=== PATIENT | male | born 1980 | race Caucasian/White ===

== ENCOUNTER 2022-09-08 12:33 | Emergency (ER) | payer OTHER, SELFPAY ==
[2022-09-08 13:17] VITALS: BP 120/79; PULSE 93; RESP 19; TEMP 36.6; O2SAT 98; BMI 27.8
[2022-09-08 13:32] VITALS: PULSE 84; O2SAT 97
--- NOTE | 2022-09-08 13:34 | DI.CT.S_ITS ---
PROCEDURE: CT ABDOMEN PELVIS W CON INDICATIONS: IV contrast only/left lower quadrant pain TECHNIQUE: After the administration of intravenous contrast, axial sections acquired from the lung bases to the pubic symphysis. Coronal and sagittal reformats were performed. For radiation dose reduction, the following was used: automated exposure control, adjustment of mA and/or kV according to patient size. COMPARISON: None. FINDINGS: Image quality: Excellent. Lung bases: Unremarkable. Heart: No significant findings. ABDOMEN: Liver: Unremarkable. Gallbladder: Unremarkable. Biliary ducts: Unremarkable. Pancreas: Unremarkable. Spleen: Unremarkable. Adrenal Glands: Unremarkable. Kidneys and Ureters: Unremarkable. Stomach and Bowel: Stomach, and small bowel loops are unremarkable. Scant colonic diverticulosis involving the descending colon with associated acute inflammatory changes of the distal descending colon and proximal sigmoid colon. No evidence for perforation or abscess formation. Normal appendix. Peritoneum: No abnormal intraperitoneal fluid. No free air. Ventral Wall: No hernias. Abdominal Nodes: No retroperitoneal or mesenteric adenopathy by size criteria. Vessels: Aorta and inferior vena cava are normal in size. PELVIS: Pelvic Organs: Unremarkable. Bladder: Unremarkable. Pelvic Nodes: No enlarged lymph nodes. Miscellaneous: No hernias are seen. Bones: Visualized osseous structures appear intact without acute fracture or focal destructive lesion. No acute compression fractures of the imaged spine. IMPRESSION: Acute diverticulitis involving the distal descending colon and proximal sigmoid colon. No evidence for perforation or abscess formation. Dictated by: Bertin Stacy M.D. on 09/08/2022 at 14:42 Approved by: Bertin Stacy M.D. on 09/08/2022 at 14:45
--- NOTE | 2022-09-08 13:35 | ED.ABDPAIN ---
HPI - Abdominal Pain General Chief Complaint: Abdominal Pain Stated Complaint: abd pain on left side Time Seen by Provider: 09/08/22 13:23 Source: patient Mode of arrival: Family Vehicle History of Present Illness HPI narrative: Patient awoke 3:00 a.m. this morning with left lower quadrant pain. Has been persistent. Never had this pain before. No nausea or vomiting no urinary complaints no hematuria. Pain is worse with movement and on palpation. No prior abdominal surgical history. Patient in no distress at this time. No history hernia. No known injury. Related Data Previous Rx's Medication Instructions Recorded ciprofloxacin HCl 500 mg tablet 500 mg PO BID #14 tabs 09/08/22 (Cipro) ibuprofen 800 mg tablet 800 mg PO Q8H PRN pain #20 tabs 09/08/22 metronidazole 500 mg tablet 500 mg PO TID #21 tabs 09/08/22 Allergies Allergy/AdvReac Type Severity Reaction Status Date / Time No Known Drug Allergies Allergy Verified 09/08/22 13:20 Review of Systems Review of Systems Narrative: GENERAL: negative chills, fatigue, malaise, fever, sweats. HEENT: negative sinus pain, ear pain, sore throat RESPIRATORY: negative dyspnea, cough CARDIOVASCULAR: negative chest pain, palpitations GASTROINTESTINAL: negative nausea, vomiting, positive abdominal pain : negative dysuria, frequency, hematuria MUSCULOSKELETAL: negative muscle or bony pain SKIN: negative rash, skin lesions NEUROLOGIC: negative weakness, numbness ROS Unobtainable: All systems reviewed & are unremarkable except as noted in HPI and below Patient History Social History Smoking Status: Current every day smoker Smoking Status: Current every day smoker tobacco type: cigarettes alcohol intake frequency: 0-2 drinks per day Substance Use Type: marijuana Exam Narrative Exam Narrative: GENERAL: in no distress, not toxic not dyspneic HEAD: Normocephalic. EYES: Pupils equal round ENT: Mucous membranes moist. NECK: Trachea midline. CARDIOVASCULAR: Regular rate and rhythm RESPIRATORY: Clear to auscultation. Breath sounds equal bilaterally. No wheezes, rales, or rhonchi. GASTROINTESTINAL: Abdomen soft, there is reproducible left lower quadrant tenderness no peritoneal signs bowel sounds are present. No pain out of portion to exam. No CVA tenderness EXTREMITIES: No gross deformities. BACK: No flank tenderness. NEURO: AOx4. SKIN: Warm and dry PSYCH: Not anxious, is cooperative Initial Vital Signs Initial Vital Signs: Vital Signs Temperature 98 F 09/08/22 13:17 Pulse Rate 93 H 09/08/22 13:17 Respiratory Rate 19 09/08/22 13:17 Blood Pressure 120/79 09/08/22 13:17 Pulse Oximetry 98 09/08/22 13:17 Oxygen Delivery Method Room Air 09/08/22 13:17 Course Orders Ordered: Discontinued Medications Ciprofloxacin (Ciprofloxacin 250 Mg Tablet) 500 mg PO NOW ONE Stop: 09/08/22 15:41 Last Admin: 09/08/22 15:45 Dose: 500 mg Documented By: CURRY Sodium Chloride (Normal Saline 0.9%) 500 mls @ 1,000 mls/hr IV BOLUS ONE Stop: 09/08/22 14:03 Last Infusion: 09/08/22 14:50 Dose: 0 mls/hr Documented By: Admin: 09/08/22 13:57 Dose: 1,000 mls/hr Documented By: CURRY Ketorolac Tromethamine (Ketorolac 30 Mg/Ml Vial) 15 mg IV NOW ONE Stop: 09/08/22 13:35 Last Admin: 09/08/22 13:56 Dose: 15 mg Documented By: CURRY Metronidazole (Metronidazole 500 Mg Tablet) 500 mg PO NOW ONE Stop: 09/08/22 15:41 Last Admin: 09/08/22 15:45 Dose: 500 mg Documented By: CURRY Ondansetron HCl (Ondansetron 4 Mg Odt) 4 mg PO NOW PRN PRN Reason: Nausea And Vomiting Ondansetron HCl (Ondansetron 4 Mg/2 Ml Inj) 4 mg IV NOW PRN PRN Reason: Nausea And Vomiting Vital Signs Vital signs: Vital Signs - 8 hr 09/08/22 13:17 09/08/22 13:32 09/08/22 14:00 Temperature 98 F Pulse Rate 93 H 84 Respiratory Rate 19 Blood Pressure 120/79 138/83 Pulse Oximetry 98 97 Oxygen Delivery Method Room Air 09/08/22 14:00 Temperature Pulse Rate 78 Respiratory Rate Blood Pressure Pulse Oximetry 98 Oxygen Delivery Method Room Air MDM - Abdominal Pain Lab Data 09/08/22 13:30 09/08/22 13:30 Labs: Lab Results 09/08/22 09/08/22 Range/Units 13:30 13:30 WBC 14.4 H (4.5-11.0) X10^3/uL RBC 4.99 (4.5-5.9) X10^6/uL Hgb 16.0 (13.5-17.5) g/dL Hct 45.2 (41-53) % MCV 90.6 (80-100) fL MCH 32.1 (26-34) PG MCHC 35.4 (30-36) % RDW 13.0 (11.6-14.8) % Plt Count 227 (150-400) X10^3/uL Neut % (Auto) 74.6 (50-75) % Lymph % (Auto) 13.9 L (25-40) % [place] % (Auto) 8.8 (3-14) % Eos % (Auto) 2.0 (2-4) % Baso % (Auto) 0.7 (0-2) % Neut # (Auto) 92266 H (4026-9628) /uL Lymph # (Auto) 2000 (9059-3132) /uL [place] # (Auto) 1300 H (0-900) /uL Eos # (Auto) 300 (0-450) /uL Baso # (Auto) 100 (0-100) /uL Sodium 135 L (137-145) mmol/L Potassium 4.0 (3.4-5.1) mmol/L Chloride 99 (98-107) mmol/L Carbon Dioxide 28 (22-32) mmol/L BUN 11 (9-20) mg/dL Creatinine 0.86 (0.66-1.25) mg/dL Estimated GFR > 60 (>60) mL/min BUN/Creatinine Ratio 12.8 (6-22) Glucose 99 (70-100) mg/dL Calcium 9.3 (8.4-10.2) mg/dL Total Bilirubin 0.4 (0.2-1.3) mg/dL AST 28 (17-59) IU/L ALT 26 (<50) IU/L Alkaline Phosphatase 106 (38-126) U/L Total Protein 7.9 (6.3-8.2) g/dL Albumin 4.5 (3.5-5.0) g/dL Globulin 3.4 (1.7-4.1) g/dL Albumin/Globulin Ratio 1.3 (1.0-2.8) Lipase 41 (23-300) U/L Point of care testing: Urine Dip Bedside Urine Glucose Negative Bedside Urine Bilirubin - Negative Bedside Urine Ketone - Negative Urine Specific [place] 1.010 Bedside Urine Occult Blood - Negative Bedside Urine pH 6.0 Bedside Urine Protein - Negative Bedside Urine Urobilinogen - Negative Bedside Urine Nitrite - Negative Bedside Urine Leukocytes - Negative Esterase Imaging Data CT scan - abdomen/pelvis: Radiologist's Impression: [address] [address] [address] Scan Report Signed Patient: Gold Jorge MR#: [id number] : 1980 Acct:[id number] Age/Sex: 42 / M Date of Service: 09/08/22 Loc: ED Accession Number: [id number] ?? Procedure: CT abdomen pelvis w con Ordering Provider: Nicko Mcdonough MD PROCEDURE:? CT ABDOMEN PELVIS W CON ? INDICATIONS:? IV contrast only/left lower quadrant pain ? TECHNIQUE:? After the administration of intravenous contrast, axial sections acquired from the lung bases to the pubic symphysis.? Coronal and sagittal reformats were performed.? For radiation dose reduction, the following was used:? automated exposure control, adjustment of mA and/or kV according to patient size.? ? COMPARISON:? None. ? FINDINGS:? Image quality:? Excellent.? ? Lung bases:? Unremarkable. Heart:? No significant findings. ? ABDOMEN: Liver:? Unremarkable.? ? Gallbladder:? Unremarkable.? ? Biliary ducts:? Unremarkable.? ? Pancreas:? Unremarkable.? ? Spleen:? Unremarkable.? ? Adrenal Glands:? Unremarkable.? ? Kidneys and Ureters:? Unremarkable.? ? ? Stomach and Bowel:? Stomach, and small bowel loops are unremarkable.? Scant colonic diverticulosis involving the descending colon with associated acute inflammatory changes of the distal descending colon and proximal sigmoid colon.? No evidence for perforation or abscess formation.? Normal appendix. Peritoneum:? No abnormal intraperitoneal fluid.? No free air.? ? Ventral Wall: ? No hernias.? Abdominal Nodes:? No retroperitoneal or mesenteric adenopathy by size criteria.? Vessels:? Aorta and inferior vena cava are normal in size.? ? PELVIS: Pelvic Organs:? Unremarkable.? ? Bladder:? Unremarkable.? ? Pelvic Nodes: No enlarged lymph nodes.? Miscellaneous: No hernias are seen. ? ? ? Bones: Visualized osseous structures appear intact without acute fracture or focal destructive lesion. No acute compression fractures of the imaged spine. ? ? IMPRESSION:? Acute diverticulitis involving the distal descending colon and proximal sigmoid colon.? No evidence for perforation or abscess formation. ? ? Dictated by: Bertin Stacy M.D. on 09/08/2022 at 14:42 ? ? Approved by: Bertin Stacy M.D. on 09/08/2022 at 14:45 ? [facility] Narrative Medical decision making narrative: Patient awoke 3:00 a.m. this morning with left lower quadrant pain. Has been persistent. Never had this pain before. No nausea or vomiting no urinary complaints no hematuria. Pain is worse with movement and on palpation. No prior abdominal surgical history. Patient in no distress at this time. No history hernia. No known injury. After history and exam CBC CMP lipase CT abdomen pelvis normal saline Toradol [facility] CC: Left lower quadrant pain Complicating co-morbidities: None Data collected from: Patient Medical records reviewed: No recent visit for this complaint Differential considered: Includes but not limited to diverticulitis kidney stone bowel obstruction colitis hernia Exam documented above, pertinent findings include: Left lower quadrant tenderness Lab Test results independently reviewed as above. Pertinent findings: WBC 14.4 hemoglobin 16 hematocrit 45 Imaging studies independently reviewed: CT abdomen pelvis acute diverticulitis involving the distal descending colon and proximal sigmoid colon. No abscess or perforation Consultations: None indicated Treatments: Toradol Cipro Flagyl Re-evaluations: 3:30 p.m. reviewed results with patient, he was correct on his suspicion that it is diverticulitis. He is familiar with this. It does run in the family. Return precautions reviewed with him. Pain is controlled. Discussion: Appropriate for discharge home. Exam and laboratory studies and imaging otherwise reassuring. No complicated diverticulitis. Return precautions reviewed with patient. Pain is controlled. Antibiotics have been started. Referral for outpatient general surgery provided. Will need outpatient colonoscopy not toxic at discharge. Patient desires discharge home Diagnosis: Acute diverticulitis Discharge Plan Departure Patient Disposition: Home Clinical Impression: Diverticulitis Instructions: DI for Diverticulitis Activity Restrictions/Additional Instructions: Please see family doctor or call provided general surgery office tomorrow to schedule appointment for re-evaluation to schedule colonoscopy. Return immediately if worse if any questions or concerns. Return if increased pain. Prescription medication has been sent to your pharmacy to roll picker today and to continue full completion. May continue the antibiotics tomorrow. First dose was given here. Call provided primary care referral phone number to establish family doctor. Call [phone] Prescriptions: New ibuprofen 800 mg tablet 800 mg PO Q8H PRN (Reason: pain) Qty: 20 0RF metronidazole 500 mg tablet 500 mg PO TID Qty: 21 0RF ciprofloxacin HCl [Cipro] 500 mg tablet 500 mg PO BID Qty: 14 0RF Referrals: Kevan Chavis MD [Physician] - Stand Alone Forms: Patient Portal/API, Work Release Note
[2022-09-08 13:42] LABS: Add Manual Diff / Slide Review NO; Basophils Absolute Auto 100 /uL (0-100); Basophils Percent Auto 0.7 % (0-2); Eosinophils Absolute Auto 300 /uL (0-450); Hematocrit 45.2 % (41-53); Lymphocytes Absolute Auto 2000 /uL (1100-4500); Lymphocytes Percent Auto 13.9 % (25-40); Mean Corpuscular HGB Conc 35.4 % (30-36); Mean Corpuscular Hemoglobin 32.1 PG (26-34); Mean Corpuscular Volume 90.6 fL (80-100); Monocytes Absolute Auto 1300 /uL (0-900); Monocytes Percent Auto 8.8 % (3-14); Neutrophils Absolute Auto 10800 /uL (1500-7000); Neutrophils Percent Auto 74.6 % (50-75); Platelet Count 227 X10^3/uL (150-400); Red Blood Cell Count 4.99 X10^6/uL (4.5-5.9); White Blood Cell Count 14.4 X10^3/uL (4.5-11.0)
[2022-09-08] MEDS: KETOROLAC 30 MG/ML VIAL 15 MG IV (13:56)
[2022-09-08] MEDS: SODIUM CHLORIDE 0.9% 500 ML 1000 ML IV (13:57)
[2022-09-08 14:00] VITALS: BP 138/83; PULSE 78; O2SAT 98
[2022-09-08 14:08] LABS: Alanine Aminotransferase 26 IU/L (<50); Albumin 4.5 g/dL (3.5-5.0); Albumin Globulin Ratio 1.3 (1.0-2.8); Alkaline Phosphatase 106 U/L (38-126); Aspartate Aminotransferase 28 IU/L (17-59); BUN Creatinine Ratio 12.8 (6-22); Bilirubin Total 0.4 mg/dL (0.2-1.3); Blood Urea Nitrogen 11 mg/dL (9-20); Calcium 9.3 mg/dL (8.4-10.2); Carbon Dioxide 28 mmol/L (22-32); Chloride 99 mmol/L (98-107); Estimated Glomerular Filt Rate > 60 mL/min (>60); Globulin 3.4 g/dL (1.7-4.1); Glucose 99 mg/dL (70-100); HEMOLYSIS 19 (0-50); Lipase 41 U/L (23-300); Sodium 135 mmol/L (137-145); Total Protein 7.9 g/dL (6.3-8.2)
[2022-09-08 14:30] VITALS: PULSE 85; O2SAT 99
[2022-09-08 15:34] VITALS: BP 126/81; PULSE 85; O2SAT 97
[2022-09-08] MEDS: CIPROFLOXACIN 250 MG TABLET 500 MG PO (15:45)
[2022-09-08] MEDS: metroNIDAZOLE 500 MG TABLET PO (15:45)
== END 2022-09-08 15:59 | disposition home or self-care (01) ==
PROVIDERS: Emergency Provider Emergency Medicine
DX: K57.92 Diverticulitis of intestine, part unspecified, without perforation or abscess without bleeding (principal); R10.32 Left lower quadrant pain
CPT/HCPCS: 36415; 74177; 80053; 81003; 83690; 85025; 96361; 96374; 99284; J1885; Q9967

== ENCOUNTER → 2023-09-30 12:21 | Outpatient (CLI) | payer BC, SELFPAY ==
--- NOTE | 2023-09-30 12:22 | DI.RAD.S_ITS ---
PROCEDURE: XR SHOULDER RT MIN 2V INDICATIONS: shoulder pain TECHNIQUE: 3 views of the shoulder were acquired. COMPARISON: None. FINDINGS: Bones: No fractures or dislocations. No suspicious bony lesions. Visualized ribs appear intact. Soft tissues: No suspicious soft tissue calcifications. IMPRESSION: No acute bony abnormality. Dictated by: Mauricio Watt M.D. on 09/30/2023 at 17:36 Approved by: Mauricio Watt M.D. on 09/30/2023 at 17:36
== END ==
PROVIDERS: PCP Family Medicine; Referring Provider Family Medicine; Visit Provider Family Medicine
DX: M25.511 Pain in right shoulder (principal)
CPT/HCPCS: 73030

== ENCOUNTER → 2023-10-04 09:34 | Outpatient (CLI) | payer BC, SELFPAY ==
[2023-10-04 10:21] LABS: Add Manual Diff / Slide Review NO; Basophils Absolute Auto 100 /uL (0-100); Basophils Percent Auto 1.4 % (0-2); Eosinophils Absolute Auto 200 /uL (0-450); Eosinophils Percent Auto 4.4 % (2-4); Hematocrit 48.1 % (41-53); Hemoglobin 16.8 g/dL (13.5-17.5); Lymphocytes Absolute Auto 1400 /uL (1100-4500); Lymphocytes Percent Auto 27.7 % (25-40); Mean Corpuscular HGB Conc 34.8 % (30-36); Mean Corpuscular Hemoglobin 32.4 PG (26-34); Mean Corpuscular Volume 92.9 fL (80-100); Monocytes Absolute Auto 800 /uL (0-900); Neutrophils Absolute Auto 2600 /uL (1500-7000); Neutrophils Percent Auto 51.5 % (50-75); Platelet Count 242 X10^3/uL (150-400); Red Blood Cell Count 5.18 X10^6/uL (4.5-5.9); Red Cell Distribution Width 12.8 % (11.6-14.8)
[2023-10-04 10:36] LABS: Hemoglobin A1C% w Est Avg Glu 5.1 % (4.0-6.0)
[2023-10-04 10:38] LABS: Alanine Aminotransferase 40 IU/L (<50); Albumin 4.2 g/dL (3.5-5.0); Albumin Globulin Ratio 1.6 (1.0-2.8); Alkaline Phosphatase 82 U/L (38-126); Aspartate Aminotransferase 31 IU/L (17-59); BUN Creatinine Ratio 15.8 (6-22); Bilirubin Total 0.4 mg/dL (0.2-1.3); Blood Urea Nitrogen 16 mg/dL (9-20); Calcium 9.4 mg/dL (8.4-10.2); Carbon Dioxide 28 mmol/L (22-32); Chloride 104 mmol/L (98-107); Cholesterol 201 mg/dL (140-199); Estimated Glomerular Filt Rate > 60 mL/min (>60); Globulin 2.7 g/dL (1.7-4.1); Glucose 100 mg/dL (70-100); HDL Cholesterol 41 mg/dL (40-60); HEMOLYSIS < 15 (0-50); LDL Cholesterol Calculated 130 mg/dL (<100); Potassium 4.6 mmol/L (3.4-5.1); Sodium 139 mmol/L (137-145); Total Protein 6.9 g/dL (6.3-8.2); Triglycerides 148 mg/dL (35-150)
[2023-10-04 17:37] LABS: HIV 1 & 2 Ab/Ag 4th Gen Combo NEGATIVE (NEGATIVE); Hep C Virus Ab w/Reflex Quant NEGATIVE s/c (NEGATIVE)
== END ==
PROVIDERS: PCP Family Medicine; Referring Provider Family Medicine; Visit Provider Family Medicine
DX: K57.90 Diverticulosis of intestine, part unspecified, without perforation or abscess without bleeding (principal); Z13.9 Encounter for screening, unspecified; Z11.4 Encounter for screening for human immunodeficiency virus [HIV]; Z13.220 Encounter for screening for lipoid disorders; Z11.59 Encounter for screening for other viral diseases; Z13.1 Encounter for screening for diabetes mellitus
CPT/HCPCS: 36415; 80053; 80061; 83036; 85025; 86803; 87389

== ENCOUNTER 2024-12-02 19:35 | Emergency (ER) | payer BC, SELFPAY ==
[2024-12-02] VITALS (8 sets, daily range): BP systolic 116–135; BP diastolic 65–91; PULSE 109–125; RESP 17–18; TEMP 37.6–37.7; O2SAT 94–96; BMI 27.8
--- NOTE | 2024-12-02 19:46 | EKG_ITS ---
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
--- NOTE | 2024-12-02 19:47 | DI.RAD.S_ITS ---
PROCEDURE: XR CHEST 1V INDICATIONS: suspected sepsis TECHNIQUE: One view of the chest was acquired. COMPARISON: None. FINDINGS AND IMPRESSION: On this single view study, no dense airspace disease or pleural effusion is seen. Low lung volumes. Normal heart size. Unremarkable osseous structures. Dictated by: Sunny Mendoza M.D. on 12/02/2024 at 21:30 Approved by: Sunny Mendoza M.D. on 12/02/2024 at 21:31
[2024-12-02 20:14] LABS: Add Manual Diff / Slide Review NO; Hematocrit 47.1 % (41-53); Hemoglobin 16.4 g/dL (13.5-17.5); Lymphocytes Absolute Auto 800 /uL (1100-4500); Mean Corpuscular HGB Conc 34.8 % (30-36); Mean Corpuscular Hemoglobin 32.6 PG (26-34); Mean Corpuscular Volume 93.6 fL (80-100); Platelet Count 198 X10^3/uL (150-400)
[2024-12-02 20:17] LABS: INR 1.0 (0.9-1.3); Prothrombin Time 11.7 SECONDS (9.4-12.5)
--- NOTE | 2024-12-02 20:17 | DI.CT.S_ITS ---
PROCEDURE: CT ABDOMEN PELVIS W CON INDICATIONS: abdominal pain TECHNIQUE: After the administration of intravenous contrast, axial sections acquired from the lung bases to the pubic symphysis. Coronal and sagittal reformats were performed. For radiation dose reduction, the following was used: automated exposure control, adjustment of mA and/or kV according to patient size. COMPARISON: [facility], CT, CT ABDOMEN PELVIS W CON, 09/08/2022, 14:19. FINDINGS: Image quality: Diagnostic Lower chest: Lung bases appear unremarkable. Normal heart size. Liver: Possible hepatic steatosis. Gallbladder and biliary system: Unremarkable, nondilated Pancreas: No ductal dilation Spleen: Nonenlarged Adrenals: No discrete nodules Kidneys: No solid renal mass. No hydronephrosis. Vessels and lymph nodes: The main portal vein is patent. No abdominal aneurysm. There are no enlarged lymph nodes by size criteria. Bowel and peritoneum: No bowel obstruction. Moderate to high-grade inflammation is seen in the pelvis, secondary to sigmoid diverticulitis. There is no drainable abscess. Mid to distal ileal loops also appears thick walled. No appendiceal dilation. No drainable ascites. Body wall: Unremarkable Pelvis: Bladder appears under distended. Heterogeneous prostate enhancement is nonspecific. This is not well assessed on CT Bones: No aggressive appearing osseous abnormality. IMPRESSION: Sigmoid diverticulitis, with significant inflammation. No drainable abscess is currently seen. Consider colonoscopy correlation following clinical treatment, given recurrent episodes. Wall thickening of the distal small bowel loops, possibly reactive or representing additional enteritis. Other findings above. Dictated by: Sunny Mendoza M.D. on 12/02/2024 at 21:42 Approved by: Sunny Mendoza M.D. on 12/02/2024 at 21:46
[2024-12-02 20:20] LABS: Lactate (Lactic Acid) 1.4 mmol/L (0.7-2.1); PTT Partial Thromboplastin Tim 29 SECONDS (25.1-36.5)
[2024-12-02 20:21] LABS: Alanine Aminotransferase 147 IU/L (<50); Albumin 4.8 g/dL (3.5-5.0); Albumin Globulin Ratio 1.5 (1.0-2.8); Alkaline Phosphatase 87 U/L (38-126); Blood Urea Nitrogen 17 mg/dL (9-20); Calcium 9.2 mg/dL (8.4-10.2); Carbon Dioxide 27 mmol/L (22-32); Chloride 96 mmol/L (98-107); Estimated Glomerular Filt Rate > 60 mL/min (>60); Globulin 3.2 g/dL (1.7-4.1); Glucose 108 mg/dL (70-99); HEMOLYSIS 18 (0-50); Lipase 39 U/L (23-300); Potassium 3.8 mmol/L (3.4-5.1); Sodium 134 mmol/L (137-145); Total Protein 8.0 g/dL (6.3-8.2)
[2024-12-02] MEDS: KETOROLAC 30 MG/ML VIAL 15 MG IV (20:23)
[2024-12-02] MEDS: ONDANSETRON 4 MG/2 ML INJ IV (20:23)
[2024-12-02] MEDS: SODIUM CHLORIDE 0.9% 1,000 ML 1000 ML IV ×2 (20:24→22:26)
[2024-12-02 20:37] LABS: Procalcitonin 0.263 ng/mL (<0.5)
[2024-12-02 20:38] LABS: Culture Indicated Urine Cult Not Indicated
--- NOTE | 2024-12-02 22:11 | PC.NURSE ---
Pt awake and alert lying in ED stretcher upon RN entering exam room. Pt engages with RN appropriately at this time. Pt states intermittent abd pain with cramping x 8-10 days, worsening today after eating a hotdog. States approx 1 hr later 1 episode of vomiting. Denies diarrhea or constipation. States n/v are now resolved but abd pain, though tolerable, continues about 5/10 currently. Continued plan of care discussed at this time. No other requests or concerns. Pt connected to blood pressure and pulse ox monitors with alarms on and audible. Call light within reach.
[2024-12-02] MEDS: MORPHINE 2 MG/ML INJ IV (22:31)
[2024-12-02] MEDS: PIPERACILLIN/TAZO 4.5 GM in SODIUM CHLORIDE 0.9% 100 ML IV (22:32)
--- NOTE | 2024-12-02 23:35 | ED_ITS ---
HPI - Abdominal Pain General Chief Complaint: Abdominal Pain Stated Complaint: abd pain, chill n/v Time Seen by Provider: 12/02/24 22:08 Source: patient Mode of arrival: Ambulatory History of Present Illness HPI narrative: 44-year-old male with a history of diverticulitis presents with acute lower abdominal bilateral pain that started worsening earlier this evening. Patient denies any other or GI symptoms. Related Data Previous Rx's ?Medication ?Instructions ?Recorded ibuprofen 800 mg tablet 800 mg PO Q8H PRN pain #20 t abs 09/08/22 amoxicillin 875 mg-potassium 1 tab PO TID 7 days #21 t abs 12/02/24 clavulanate 125 mg tablet Allergies Allergy/AdvReac Type Severity Reaction Status Date / Time No Known Drug Allergies Allergy Verified 12/02/24 19:43 Review of Systems Review of Systems ROS Unobtainable: All systems reviewed & are unremarkable except as noted in HPI and below Patient History Medical History (Updated 12/02/24 @ 23:38 by Tez Johnson MD) Hyperlipidemia Diverticulosis (09/08/22) History of diverticulitis (09/08/22) Family History (Updated 10/26/23 @ 20:53 by Mary Pascual) Mother Tumor Grandmother Diabetes mellitus tobacco type: cigarettes alcohol intake frequency: 0-2 drinks per day Exam Narrative Exam Narrative: General: Patient appears to be in no acute distress, acting appropriately Head: normocephalic, atraumatic, HEENT: Pupils equal round reactive, eyes tracking well, neck supple, no JVD Heart: regular rate and rhythm, no murmurs, rubs, or gallops heard Lungs: clear to auscultation, no adventitious sounds Abdomen: soft , tender to palpation in lower right and left quadrants. Neurological: no focal neurological signs, moving all extremities well, alert and oriented x3, Psych: good judgment ,good insight, mood is normal. Initial Vital Signs Initial Vital Signs: Vital Signs Temperature 100 F H 12/02/24 19:43 Pulse Rate 125 H 12/02/24 19:43 Respiratory Rate 18 12/02/24 19:43 Blood Pressure 134/91 H 12/02/24 19:43 Pulse Oximetry 96 12/02/24 19:43 Oxygen Delivery Method Room Air 12/02/24 19:43 Course Orders Ordered: ED Orders 12/02/24 19:46 EKG-12 Lead Stat 12/02/24 19:47 XR chest 1V Stat 12/02/24 19:50 Complete Blood Count AUTO DIFF Stat Comprehensive Metabolic Panel Stat Lactate (Lactic Acid) Stat Lipase Stat PTT Partial Thromboplastin Paramjit Stat Procalcitonin Stat Prothrombin Time INR Stat 12/02/24 20:00 Blood Culture Stat 12/02/24 20:05 Urine Microscopic Stat 12/02/24 20:17 CT abdomen pelvis w con Stat Discontinued Medications Hydrocodone Bitart/Acetaminophen (Hydrocodone/Acet 5/325 Prepack) 1 bottle MISC DIRECTED ONE Stop: 12/02/24 23:44 Last Admin: 12/02/24 23:46 Dose: 1 bottle Documented By: MACO Sodium Chloride (Normal Saline 0.9%) 1,000 mls @ 1,000 mls/hr IV BOLUS ONE Stop: 12/02/24 20:46 Last Infusion: 12/02/24 20:58 Dose: Infused Documented By: Admin: 12/02/24 20:24 Dose: 1,000 mls/hr Documented By: CATE Piperacillin Sod/Tazobactam (Sod 4.5 gm/ Sodium Chloride) 100 mls @ 200 mls/hr IV NOW ONE Stop: 12/02/24 22:25 Last Infusion: 12/02/24 23:12 Dose: Infused Documented By: Admin: 12/02/24 22:32 Dose: 200 mls/hr Documented By: MACO Sodium Chloride (Normal Saline 0.9%) 1,000 mls @ 1,000 mls/hr IV BOLUS ONE Stop: 12/02/24 23:23 Last Infusion: 12/02/24 23:39 Dose: Infused Documented By: Admin: 12/02/24 22:26 Dose: 1,000 mls/hr Documented By: MACO Ketorolac Tromethamine (Ketorolac 30 Mg/Ml Vial) 15 mg IV NOW ONE Stop: 12/02/24 20:18 Last Admin: 12/02/24 20:23 Dose: 15 mg Documented By: CATE Morphine Sulfate (Morphine 2 Mg/Ml Inj) 2 mg IV NOW ONE Stop: 12/02/24 22:27 Last Admin: 12/02/24 22:31 Dose: 2 mg Documented By: MACO Ondansetron HCl (Ondansetron 4 Mg/2 Ml Inj) 4 mg IV NOW PRN PRN Reason: Nausea And Vomiting Last Admin: 12/02/24 20:23 Dose: 4 mg Documented By: CATE Ondansetron HCl (Ondansetron 4 Mg Odt) 4 mg PO NOW PRN PRN Reason: Nausea And Vomiting Ondansetron HCl (Ondansetron 4 Mg Odt Prepack) 1 bottle MISC DIRECTED ONE Stop: 12/02/24 23:44 Last Admin: 12/02/24 23:46 Dose: 1 bottle Documented By: MACO Reevaluation(s) Reevaluation #1: Upon re-evaluation, patient's pain has subsided some after Toradol and morphine. Reevaluation #2: Upon another evaluation, patient feels ready to be discharged. Vital Signs Vital signs: Vital Signs - 8 hr 12/02/24 19:43 12/02/24 21:00 12/02/24 21:46 Temperature 100 F H 99.7 F H Pulse Rate 125 H 120 H 112 H Respiratory Rate 18 17 Blood Pressure 134/91 H 130/65 Pulse Oximetry 96 94 96 Oxygen Delivery Method Room Air Room Air 12/02/24 21:47 12/02/24 21:47 12/02/24 22:00 Temperature Pulse Rate 113 H 114 H Respiratory Rate 18 Blood Pressure 135/85 Pulse Oximetry 95 94 Oxygen Delivery Method Room Air 12/02/24 22:00 12/02/24 22:30 12/02/24 22:30 Temperature Pulse Rate 109 H Respiratory Rate Blood Pressure 116/72 135/87 Pulse Oximetry 95 Oxygen Delivery Method Room Air 12/02/24 23:00 12/02/24 23:00 12/02/24 23:30 Temperature Pulse Rate 109 H 109 H Respiratory Rate 18 Blood Pressure 123/77 Pulse Oximetry 94 96 Oxygen Delivery Method Room Air Room Air 12/02/24 23:30 Temperature Pulse Rate Respiratory Rate Blood Pressure 122/76 Pulse Oximetry Oxygen Delivery Method MDM - Abdominal Pain Lab Data 12/02/24 19:50 12/02/24 19:50 Labs: Lab Results 12/02/24 12/02/24 Range/Units 19:50 20:05 WBC 13.1 H (4.5-11.0) X10^3/uL RBC 5.03 (4.5-5.9) X10^6/uL Hgb 16.4 (13.5-17.5) g/dL Hct 47.1 (41-53) % MCV 93.6 (80-100) fL MCH 32.6 (26-34) PG MCHC 34.8 (30-36) % RDW 13.5 (11.6-14.8) % Plt Count 198 (150-400) X10^3/uL Neut % (Auto) 84.2 H (50-75) % Lymph % (Auto) 6.2 L (25-40) % [place] % (Auto) 9.0 (3-14) % Eos % (Auto) 0.2 L (2-4) % Baso % (Auto) 0.4 (0-2) % Neut # (Auto) 76631 H (0060-4056) /uL Lymph # (Auto) 800 L (4121-4561) /uL [place] # (Auto) 1200 H (0-900) /uL Eos # (Auto) 0 (0-450) /uL Baso # (Auto) 0 (0-100) /uL PT 11.7 (9.4-12.5) SECONDS INR 1.0 (0.9-1.3) APTT 29 (25.1-36.5) SECONDS Sodium 134 L (137-145) mmol/L Potassium 3.8 (3.4-5.1) mmol/L Chloride 96 L (98-107) mmol/L Carbon Dioxide 27 (22-32) mmol/L BUN 17 (9-20) mg/dL Creatinine 1.00 (0.66-1.25) mg/dL Estimated GFR > 60 (>60) mL/min BUN/Creatinine Ratio 17.0 (6-22) Glucose 108 H (70-99) mg/dL Lactate 1.4 (0.7-2.1) mmol/L Calcium 9.2 (8.4-10.2) mg/dL Total Bilirubin 1.1 (0.2-1.3) mg/dL AST 59 (17-59) IU/L ALT 147 H (<50) IU/L Alkaline Phosphatase 87 (38-126) U/L Total Protein 8.0 (6.3-8.2) g/dL Albumin 4.8 (3.5-5.0) g/dL Globulin 3.2 (1.7-4.1) g/dL Albumin/Globulin Ratio 1.5 (1.0-2.8) Lipase 39 (23-300) U/L Procalcitonin 0.263 (<0.5) ng/mL Urine RBC 0-1/hpf (0-5/HPF) Urine WBC 0-1/hpf (0-5/HPF) Ur Squamous Epith Cells None seen (0-5/HPF) Urine Bacteria Occasional (0-1) (None) Ur Culture Indicated? Cult not indicated Vol Urine Centrifuged 10ml (spun) Point of care testing: Urine Dip Bedside Urine Glucose Negative Bedside Urine Bilirubin - Negative Bedside Urine Ketone ++ 40 Urine Specific [place] 1.005 Bedside Urine Occult Blood - Negative Bedside Urine pH 9.0 Bedside Urine Protein + 30 Bedside Urine Urobilinogen - Negative Bedside Urine Nitrite - Negative Bedside Urine Leukocytes - Negative Esterase Imaging Data CT scan - abdomen/pelvis: Radiologist's Impression: Sigmoid diverticulitis, with significant inflammation. No drainable abscess is currently seen. Consider colonoscopy correlation following clinical treatment, given recurrent episodes. Wall thickening of the distal small bowel loops, possibly reactive or representing additional enteritis. [facility] Narrative Medical decision making narrative: 44-year-old male with a history of diverticulitis presents again with a sigmoid diverticulitis inflammation. No drainable abscess was seen on the CT. Patient advised to go on a liquid diet until pain subsides completely. He was given some fluids and Zosyn here in the ED. patient's pain was controlled with some Toradol and morphine. Patient prescribed Augmentin to complete his course of antibiotics for the diverticulitis. Advised that he may need to go see a GI for further workup including a colonoscopy potentially. Follow up back in the ER for any new or worsening abdominal pain. Discharge Plan Departure Patient Disposition: Home Clinical Impression: Diverticulitis Instructions: DI for Diverticulitis Activity Restrictions/Additional Instructions: Stay on a liquid diet until pain resolves. Take antibiotics as prescribed. Follow diverticulitis diet. May need to follow up with GI physician for a colonoscopy and further evaluation in the future. Prescriptions: New amoxicillin-pot clavulanate 875-125 mg tablet 1 tab PO TID 7 Days Qty: 21 0RF No Action ibuprofen 800 mg tablet 800 mg PO Q8H PRN (Reason: pain) Qty: 20 0RF Referrals: Antwon Pulido MD [Primary Care Provider, Family Practice] Stand Alone Forms: Patient Portal/API
--- NOTE | 2024-12-02 23:36 | PC.NURSE ---
Ambulatory to restroom without difficulty or assistance
[2024-12-02] MEDS: ONDANSETRON 4 MG ODT PREPACK 1 BOTTLE MISC (23:46)
== END 2024-12-02 23:52 | disposition home or self-care (01) ==
PROVIDERS: Emergency Provider Family Medicine; PCP Family Medicine
DX: K57.32 Diverticulitis of large intestine without perforation or abscess without bleeding (principal)
CPT/HCPCS: 36415; 71045; 74177; 80053; 81003; 81015; 83605; 83690; 84145; 85025; 85610; 85730; 87040; 93005; 93010; 96361; 96365; 96375; 99284; J1885; J2270; J2405; J2543; J7030; J7050; Q9967